=== PATIENT | female | born 1985 | race Caucasian/White ===

== ENCOUNTER 2019-08-22 06:43 | Emergency (ER) | payer OTHER ==
[~2019-08-22] VITALS: Ht 157.5 cm; Wt 86.6 kg
[2019-08-22 06:45] VITALS: BP 114/82
--- NOTE | 2019-08-22 06:58 | NUR ---
33 Y/O FEMALE C/O LT ANTERIOR CHEST WALL PAIN THAT RADIATES TO LT SHOULDER X 1 DAY. DENIES SOB. PT STATES PAIN STARTED WHEN SHE WAS SLEEPING. 37 WKS , DENIES ABD PAIN OR VAGINAL BLEEDING. +CMS OF LT EXTREMITY. 10 SHARP PT WHEN PRESSURE PLACED ON LT ANTERIOR CHEST WALL. PT STATES , LMP 12/22/18. VSS. MEDHX: DENIES ALLERGIES: NKA
--- NOTE | 2019-08-22 06:59 | NUR ---
DR BASS AT BEDSIDE EXAMINING PT.
--- NOTE | 2019-08-22 07:08 | NUR ---
REPORT GIVEN TO MAU CHANEL. TRANSFER OF CARE AT THIS TIME.
--- NOTE | 2019-08-22 07:11 | NUR ---
RECEIVED CHANGE OF SHIFT REPORT FROM MAU ARELLANO. AT BEDSIDE WITH PT.
[2019-08-22] MEDS ORDERED: LIDOCAINE OINTMENT 5% 35 GM TUBE TP STA (07:12)
--- NOTE | 2019-08-22 07:18 | NUR ---
LAB AND RAD AT BEDSIDE
[2019-08-22 07:40] LABS: BASOPHILS % (AUTO) 0.4 % (0.0-2.0); EOSINOPHILS # (AUTO) 0.2 K/uL (0-0.4); EOSINOPHILS % (AUTO) 2.1 % (0.0-4.0); HEMATOCRIT 37.4 % (36-48); HEMOGLOBIN 12.3 g/dL (12.0-16.0); LYMPHOCYTES # (AUTO) 1.8 K/uL (2.5-16.5); LYMPHOCYTES % (AUTO) 22.8 % (20.5-51.1); MEAN CORPUSCULAR HEMOGLOBIN 29 pg (27-31); MEAN CORPUSCULAR HGB CONC 33 g/dL (33-37); MEAN CORPUSCULAR VOLUME 86.7 fL (80-94); MONOCYTES # (AUTO) 0.7 K/uL (0.8-1.0); MONOCYTES % (AUTO) 8.5 % (1.7-9.3); NEUTROPHILS # (AUTO) 5.1 K/uL (1.8-7.7); NEUTROPHILS % (AUTO) 66.2 % (42.2-75.2); PLATELET COUNT (AUTO) 175 K/uL (140-450); RED BLOOD CELL COUNT(AUTO) 4.31 MIL/uL (4.20-5.40); RED CELL DISTRIBUTION WIDTH 13.4 % (11.6-13.7); WHITE BLOOD COUNT (AUTO) 7.7 K/uL (4.8-10.8)
--- NOTE | 2019-08-22 07:41 | NUR ---
12 LEAD EKG DONE AT BEDSIDE
--- NOTE | 2019-08-22 08:19 | NUR ---
LIDOCAINE GIVEN. APPLIED TO LEFT UPPER CHEST AND LEFT SHOULDER. WILL MONITOR OR ADVERSE REACTIONS.
[2019-08-22 08:26] LABS: ANION GAP 16.2 (8-16); CARBON DIOXIDE 23.8 mmol/L (21-32); CREATININE 0.5 mg/dL (0.6-1.3)
[2019-08-22 09:27] VITALS: BP 99/52
--- NOTE | 2019-08-22 09:28 | NUR ---
Patient discharged with v/s stable. Written and verbal after care instructions given and explained. Patient verbalized understanding. Ambulatory with steady gait. All questions addressed prior to discharge. Advised to follow up with PMD.
== END 2019-08-22 09:28 | disposition home or self-care (01) ==
LOC: MED 06:43
DX: O26.892 Other specified pregnancy related conditions, second trimester (principal); M25.512 Pain in left shoulder; Z3A.37 37 weeks gestation of pregnancy; Z98.890 Other specified postprocedural states
CPT/HCPCS: 36415; 71045; 80048; 84484; 85025; 93005; 99284; Q0092

== ENCOUNTER 2020-08-12 04:01 | Emergency (ER) | payer OTHER ==
[~2020-08-12] VITALS: Ht 160 cm; Wt 76.2 kg
[2020-08-12 04:09] VITALS: BP 118/77
--- NOTE | 2020-08-12 04:22 | NUR ---
ERMD EVALUATING PATIENT IN LOBBY.
--- NOTE | 2020-08-12 04:23 | NUR ---
EKG BEING PERFORMED IN TRIAGE.
[2020-08-12] MEDS ORDERED: ACETAMINOPHEN EXTRA STRENGTH 500 MG TAB PO ONE (05:10)
[2020-08-12] MEDS ORDERED: ASPIRIN 325 MG TAB PO ONE (05:10)
[2020-08-12] MEDS ORDERED: PANTOPRAZOLE 40 MG TABEC PO ONE (05:10)
--- NOTE | 2020-08-12 05:20 | NUR ---
PATIENT TAKEN TO XRAY VIA W/C.
--- NOTE | 2020-08-12 05:27 | NUR ---
PATIENT RETURNED FROM XRAY VIA W/C. PATIENT TAKEN BACK TO LOBBY.
[2020-08-12 07:05] VITALS: BP 122/78
== END 2020-08-12 07:05 | disposition home or self-care (01) ==
LOC: MED 04:01
DX: R07.9 Chest pain, unspecified (principal)
CPT/HCPCS: 71045; 93005; 99283

== ENCOUNTER 2022-04-24 03:00 | Emergency (ER) | payer OTHER ==
[~2022-04-24] VITALS: Ht 157.5 cm; Wt 72.6 kg
[2022-04-24 03:09] VITALS: BP 125/89
--- NOTE | 2022-04-24 03:20 | NUR ---
PT TAKEN TO BED 6
[2022-04-24] MEDS ORDERED: KETOROLAC 60 MG/2 ML VIAL IM ONE (03:30)
[2022-04-24 03:42] LABS: APPEARANCE,URINE CLEAR (CLEAR); BILIRUBIN,URINE NEGATIVE (NEGATIVE); BLOOD, URINE TRACE-I (NEGATIVE); COLOR,URINE YELLOW (YELLOW); LEUKOCYTE ESTERASE ,URINE TRACE (NEGATIVE); NITRITE, URINE NEGATIVE (NEGATIVE); UGLUCOSE NEGATIVE (NEGATIVE)
[2022-04-24 03:44] LABS: BASOPHILS # (AUTO) 0.1 K/uL (0.00-0.22); EOSINOPHILS # (AUTO) 0.2 K/uL (0-0.4); HEMATOCRIT 36.5 % (36-48); HEMOGLOBIN 11.9 g/dL (12.0-16.0); LYMPHOCYTES # (AUTO) 3.1 K/uL (2.5-16.5); LYMPHOCYTES % (AUTO) 37.4 % (20.5-51.1); MEAN CORPUSCULAR HEMOGLOBIN 26 pg (27-31); MEAN CORPUSCULAR HGB CONC 33 g/dL (33-37); MEAN CORPUSCULAR VOLUME 81.1 fL (80-94); MONOCYTES # (AUTO) 0.7 K/uL (0.8-1.0); NEUTROPHILS # (AUTO) 4.3 K/uL (1.8-7.7); NEUTROPHILS % (AUTO) 51.6 % (42.2-75.2); PLATELET COUNT (AUTO) 256 K/uL (140-450); RED CELL DISTRIBUTION WIDTH 14.5 % (11.6-13.7); WHITE BLOOD COUNT (AUTO) 8.3 K/uL (4.8-10.8)
--- NOTE | 2022-04-24 03:45 | NUR ---
PATIENT MEDICATED. TOLERATED WELL.
--- NOTE | 2022-04-24 03:45 | NUR ---
LAB AT BEDSIDE
--- NOTE | 2022-04-24 03:50 | NUR ---
36/F BIB SELF C/C EPIGASTRIC PAIN XTODAY. PAIN IS 8/10 AND "BURNING". PATIENT STATED THAT THE PAIN WAS SO BAD IT WOKE HER UP. PATIENT IS CRYING AND STATED THAT THE PAIN SCARED HER BECAUSE SHE HAS BEEN TAKING THESE "[place] PILLS". DENIES N/V/C/D/FEVER/CHILLS/SOB/CP. APPEARS TO BE GUARDING ABD. PATIENT IS TEARY AND COOPERATIVE. AAOX4 AND AMBULATORY LMP UNKNOWN- NOT REGULAR PMHX [facility]
--- NOTE | 2022-04-24 03:50 | NUR ---
Note undone in EDM - 04/24/22 at 0351 by SOLIS 36/F BIB SELF C/C EPIGASTRIC PAIN XTODAY. PAIN IS 8/10 AND "BURNING". PATIENT STATED THAT THE PAIN WAS SO BAD IT WOKE HER UP. PATIENT IS CRYING AND STATED THAT THE PAIN SCARED HER BECAUSE SHE HAS BEEN TAKING THESE "[place] PILLS". APPEARS TO BE GUARDING ABD. PATIENT IS TEARY AND COOPERATIVE. AAOX4 AND AMBULATORY LMP UNKNOWN- NOT REGULAR PMHX [facility] PACK
[2022-04-24 03:51] LABS: RBC,URINE 0-5 /HPF (0-5); WBC,URINE 0-5 /HPF (0-5)
[2022-04-24 03:59] LABS: ALBUMIN 3.6 g/dL (3.4-5.0); ANION GAP 7.5 (8-16); CARBON DIOXIDE 25.1 mmol/L (21-32); CHLORIDE 103 mmol/L (98-107); CREATININE 0.8 mg/dL (0.6-1.3); GFR ARICAN-AMERICAN 106 mL/min (>90); GLUCOSE 95 mg/dL (74-106); LIPASE 105 U/L (73-393); POTASSIUM 3.6 mmol/L (3.5-5.1); SODIUM SERUM 132 mmol/L (136-145); TOTAL BILIRUBIN 0.2 mg/dL (0.0-1.0); UREA NITROGEN, BLOOD 19 mg/dL (7-18)
--- NOTE | 2022-04-24 04:41 | NUR ---
Dr. Bojorquez examining patient.
[2022-04-24] MEDS ORDERED: IBUP-2213 PO (04:50)
[2022-04-24] MEDS ORDERED: OMEP40EC24 PO (04:50)
[2022-04-24] MEDS ORDERED: ATA25 PO (04:50)
[2022-04-24 04:54] VITALS: BP 125/89
--- NOTE | 2022-04-24 04:54 | NUR ---
Chart checked and completed.
--- NOTE | 2022-04-24 04:54 | NUR ---
Patient discharged with v/s stable. Written and verbal after care instructions given abd pain and explained. Patient alert, oriented and verbalized understanding of instructions. Ambulatory with steady gait. All questions addressed prior to discharge. ID band removed. Patient advised to follow up with PMD. Rx of ibuprofen, atarax, and omeprazole given.
== END 2022-04-24 04:54 | disposition home or self-care (01) ==
LOC: MED 03:00
DX: R10.13 Epigastric pain (principal); F41.9 Anxiety disorder, unspecified
CPT/HCPCS: 36415; 80053; 81001; 81025; 83690; 85025; 87086; 96372; 99283; J1885